=== PATIENT | male | born 1985 | race Caucasian/White ===

== ENCOUNTER → 2019-09-18 | Outpatient (CLI) | payer OTHER ==
--- NOTE | 2019-09-18 20:18 | RADIOLOGY REPORT (SQ) ---
EXAM DESCRIPTION: US EXTREMITY VEINS UNILATERAL COMPLETED DATE/TME: 09/18/2019 00:00 CLINICAL HISTORY: 34 years Male RLE PAIN COMPARISON: None. TECHNIQUE: Duplex imaging performed to evaluate the right lower extremity venous structures. Compression imaging and augmentation imaging performed. The common femoral, superficial femoral, popliteal, greater saphenous and posterior tibial veins were examined. FINDINGS: No thrombus is identified in the right lower extremity venous structures. There are two areas of fluid within the posterior calf muscles in the region of the medial gastrocnemius which may reflect tears. Recommend further evaluation with MRI. IMPRESSION: No DVT is identified in the right lower extremity. Two Areas of fluid in the posterior mid calf which may reflect tear or hematoma within the musculature or tendon. Consider further evaluation with MRI if indicated
== END ==
LOC: RAD 16:20
PROVIDERS: ATTEND Nurse Practitioner
DX: M79.661 Pain in right lower leg (principal)
CPT/HCPCS: 93971